=== PATIENT | male | born 2000 | race American Indian/Alaskan Native ===

== ENCOUNTER 2021-08-02 11:52 | Emergency (ER) | payer SELFPAY ==
--- NOTE | 2021-08-02 14:50 | Emergency Department Report ---
Stated Complaint: MIGRAINE Time Seen by Provider: 08/02/21 14:49 - HPI History of Present Illness: 20 YO COMES TO ER WITH 1 M HX OF MIGRAINE NO HEADACHE NOW HERE FOR WORK NOTE BECAUSE HE MISSED WORK PMH MIGRAINE PSH NONE DAILY MEDS NONE - ROS Review of Systems: NONE - Exam Vital Signs: NORMAL DOCUMENTED MANUALLY BY RN Physical Exam: ALERT ORIENTED NEURO INTACT S1S2 LUNGS CTA ABD SNT MSE screening note: Focused history and physical exam performed. Due to findings the following was ordered: NO LIFE THREAT REFERRAL TO PCP ED Disposition for MSE Clinical Impression: Migraine Disposition: 01 HOME / SELF CARE / HOMELESS Is pt being admited?: No Does the pt Need Aspirin: No Condition: Stable Additional Instructions: FOLLOW UP WITH PCP REFERRAL BELOW Referrals: JASON TAMAYO MD [Staff Physician] - 3-5 Days Forms: Work/School Release Form(ED) Time of Disposition: 14:50
[2021-08-02 15:14] VITALS: BP 141/80
== END 2021-08-02 15:28 | disposition home or self-care (01) ==
LOC: ED 11:52
DX: G43.909 Migraine, unspecified, not intractable, without status migrainosus (principal)
CPT/HCPCS: 99282